=== PATIENT | male | born 1985 | race Caucasian/White ===

== ENCOUNTER 2023-01-20 15:59 | Emergency (ER) | payer OTHER, SELFPAY ==
[2023-01-20] VITALS (8 sets, daily range): BP systolic 148; BP diastolic 98; PULSE 96–110; RESP 15–23; TEMP 37; O2SAT 97–98; BMI 23.4
--- NOTE | 2023-01-20 16:22 | CT_ITS ---
[address] [address] Patient Name: EDUARDO QUILES MRN: [id number] date: 1985 Sex: M Assigned Patient Location: ER Current Patient Location: ER Accession/Order Number: [id number] Exam Date: 01/20/2023 16:35 Report Date: 01/20/2023 17:07 At the request of: JOCELINE CAMARENA Procedure: CT angio chest CTA CHEST. INDICATION: Pulmonary embolism. COMPARISON: None available. TECHNIQUE: CT pulmonary angiogram. Initially, limited axial non-contrast images through chest obtained to establish proper bolus timing. Subsequently, contrast enhanced axial CT images were obtained through the chest. Axial, sagittal and coronal reformatted maximum intensity projection images and / or 3D volume rendered images created. FINDINGS: PULMONARY ARTERIES: No intraluminal filling defects within the central or segmental pulmonary arteries to suggest pulmonary embolism.. Normal RV:LV ratio (<1). AORTA: The thoracic aorta diameter is normal without aneurysm or dissection. LUNGS: There is mild centrilobular and paraseptal emphysema in the apices. No airspace disease. No pleural effusions.. No pneumothorax. LYMPH NODES: No enlarged mediastinal lymph nodes by CT criteria. HEART: Heart size is normal. No pericardial effusion. UPPER ABDOMEN: Hepatic steatosis. MUSCULOSKELETAL: No acute osseous abnormality. CT/CT angio chest IMPRESSION: 1. No pulmonary thromboembolic disease. No aortic aneurysm or dissection. 2. No acute airspace disease. Electronically authenticated by: KIM SMITH Date: 01/20/2023 17:07
--- NOTE | 2023-01-20 16:23 | ED.CHESTPAI1 ---
HPI - Chest Pain General Chief Complaint: Chest Pain Stated Complaint: Flank Pain Time Seen by Provider: 01/20/23 16:17 Mode of arrival: walk-in Limitations: no limitations History of Present Illness HPI narrative: patient is a 37-year-old male who presents to the emergency department for right-sided chest discomfort for the last two days. He states he smokes half a pack of cigarettes daily and has chronic coughing. He states he has pain in the right chest wall that is worse with deep breathing, coughing. He states it is not tender to touch. He has a history of previous pneumothorax on the right side requiring surgery. No medications taken prior to arrival. He denies any objective fevers, vomiting. He has no significant sputum production or hemoptysis. Related Data Home Medications Medication Instructions Recorded Confirmed aripiprazole 5 mg tablet 5 mg PO DAILY 01/20/23 01/20/23 buprenorphine 2 mg-naloxone 0.5 mg 2 tab sublingual BID 01/20/23 01/20/23 sublingual tablet Previous Rx's Medication Instructions Recorded prednisone 20 mg tablet 60 mg PO DAILY 3 days #9 tabs 01/20/23 Allergies Allergy/AdvReac Type Severity Reaction Status Date / Time No Known Drug Allergies Allergy Verified 01/20/23 16:14 Review of Systems ROS Constitutional Denies: fever or chills Ears, nose, mouth, and throat Denies: throat pain Cardiovascular Reports: chest pain Respiratory Reports: cough; Denies: shortness of breath Gastrointestinal Denies: nausea or vomiting Genitourinary Denies: painful urination Musculoskeletal Reports: back pain; Denies: neck pain Integumentary/Breast Denies: rash Neurological Denies: headache Hematologic/Lymphatic Denies: easy bruising PFSH PFSH Social History Smoking status: Heavy tobacco smoker Exam Narrative Exam Narrative: Gen.: Awake, alert, in no distress Head: Normocephalic, atraumatic ENT: Moist mucous membranes Respiratory: No respiratory distress, lungs clear bilaterally Cardio: Regular rate and rhythm Gastrointestinal: Abdomen is soft, nondistended and nontender to palpation Extremities: Moves extremities equally, no injuries noted Psych: Normal mood and affect Neuro: No focal neuro deficit Skin: Warm, dry, intact; no rashes noted of the flank Constitutional Vital Signs, click to edit/add: Last Vital Signs Temp 98.6 F 01/20/23 16:10 Pulse 108 H 01/20/23 16:10 Resp 20 01/20/23 16:10 BP 148/98 H 01/20/23 16:10 Pulse Ox 98 01/20/23 16:21 O2 Del Method Room Air 01/20/23 16:21 Course Vital Signs Vital signs: Vital Signs Temperature 98.6 F 01/20/23 16:10 Pulse Rate 108 H 01/20/23 16:10 Respiratory Rate 20 01/20/23 16:10 Blood Pressure 148/98 H 01/20/23 16:10 Pulse Oximetry 97 01/20/23 16:10 Oxygen Delivery Method Room Air 01/20/23 16:10 Temperature 98.6 F 01/20/23 16:10 Pulse Rate 108 H 01/20/23 16:10 Respiratory Rate 20 01/20/23 16:10 Blood Pressure 148/98 H 01/20/23 16:10 Pulse Oximetry 98 01/20/23 16:21 Oxygen Delivery Method Room Air 01/20/23 16:21 MDM - Chest Pain MDM Narrative Medical decision making narrative: based on the patient's history of pneumothorax, I suspect a d-dimer will be elevated so the patient had a CT angio of the chest as he is tachycardic with pleuritic pain in the right chest wall. Lab studies are stable although LFTs are elevated, consistent with hepatic steatosis. This was seen on CT scan. The CT was otherwise unremarkable. patient will be discharged with a course of steroids, he declined Toradol in the Emergency Room. Follow-up with PCP for further evaluation and treatment and return to the emergency department if symptoms change or worsen. Medical Records Data Attestation: I reviewed the patient's medical records. Lab Data Attestation: I reviewed the patient's lab results. Labs: Lab Results 01/20/23 Range/Units 16:31 WBC 6.3 (4.0-11.0) 10^3/uL RBC 4.74 (4.70-6.10) 10^6/uL Hgb 14.2 (14.0-18.0) g/dL Hct 43.6 (42.0-54.0) % MCV 92.0 (80.0-94.0) fL MCH 30.0 (25.9-34.0) pg MCHC 32.6 (29.9-35.2) g/dL RDW 13.9 (11.0-15.0) % Plt Count 210 (150-450) 10^3/uL MPV 10.2 (9.5-13.5) fL Neut % (Auto) 54.8 (43.0-75.0) % Lymph % (Auto) 29.6 (20.5-60.0) % [place] % (Auto) 10.7 (1.7-12.0) % Eos % (Auto) 3.7 (0.9-7.0) % Baso % (Auto) 1.0 (0.2-2.0) % Neut # (Auto) 3.5 (1.4-6.5) 10^3/uL Lymph # (Auto) 1.9 (1.2-3.8) 10^3/uL [place] # (Auto) 0.7 (0.3-0.8) 10^3/uL Eos # (Auto) 0.2 (0.0-0.7) 10^3/uL Baso # (Auto) 0.1 (0.0-0.1) 10^3/uL Abs Immat Gran (auto) 0.01 (0.00-0.03) 10^3/uL Imm/Tot Granulo (auto) 0.2 (0.0-0.5) % Sodium 142 (136-145) mmol/L Potassium 3.5 (3.5-5.1) mmol/L Chloride 104 (98-107) mmol/L Carbon Dioxide 29.2 (21.0-32.0) mmol/L Anion Gap 12.3 BUN 11.0 (7.0-18.0) mg/dL Creatinine 0.94 (0.70-1.30) mg/dL Est GFR ( Amer) >60 (>=60) Est GFR (Non-Af Amer) >60 (>=60) BUN/Creatinine Ratio 11.7 Glucose 93 (74-106) mg/dL Calcium 9.3 (8.5-10.1) mg/dL Total Bilirubin 0.4 (0.2-1.0) mg/dL AST 236 H (15-37) U/L ALT 160 H (16-63) U/L Alkaline Phosphatase 115 (46-116) U/L Total Protein 9.0 H (6.4-8.2) g/dL Albumin 3.5 (3.4-5.0) g/dL Globulin 5.5 g/dL Albumin/Globulin Ratio 0.[address] scan - chest: Attestation: I have reviewed the pertinent imaging results. Radiologist's impression: Procedure: CT angio chest CTA CHEST. INDICATION: Pulmonary embolism. COMPARISON: None available. TECHNIQUE: CT pulmonary angiogram. Initially, limited axial non-contrast images through chest obtained to establish proper bolus timing. Subsequently, contrast enhanced axial CT images were obtained through the chest. Axial, sagittal and coronal reformatted maximum intensity projection images and / or 3D volume rendered images created. FINDINGS: PULMONARY ARTERIES: No intraluminal filling defects within the central or segmental pulmonary arteries to suggest pulmonary embolism.. Normal RV:LV ratio (<1). AORTA: The thoracic aorta diameter is normal without aneurysm or dissection. LUNGS: There is mild centrilobular and paraseptal emphysema in the apices. No airspace disease. No pleural effusions.. No pneumothorax. LYMPH NODES: No enlarged mediastinal lymph nodes by CT criteria. HEART: Heart size is normal. No pericardial effusion. UPPER ABDOMEN: Hepatic steatosis. MUSCULOSKELETAL: No acute osseous abnormality. IMPRESSION: 1. No pulmonary thromboembolic disease. No aortic aneurysm or dissection. 2. No acute airspace disease. Electronically authenticated by: KIM SMITH Date: 01/20/2023 17:07 ECG Data Attestation: I personally reviewed and interpreted this ECG as follows: (sinus tachycardia at a rate of 102, no acute ST elevation or ectopy. EKG reviewed by attending physician) ECG interpretation date: 01/20/23 ECG interpretation time: 16:27 Heart Score History: Slightly/Non-Suspicious ECG: Normal Age: <45 years Risk Factors: 1 or 2 Risk Factors Discharge Plan Discharge Chief Complaint: Chest Pain Clinical Impression: Atypical chest pain, Pleurisy Patient Disposition: Home, Self-Care Time of Disposition Decision: 17:23 Condition: Good Prescriptions / Home Meds: New prednisone 20 mg tablet 60 mg PO DAILY 3 Days Qty: 9 0RF No Action buprenorphine-naloxone 2-0.5 mg tablet, sublingual 2 tab SUBLINGUAL BID aripiprazole 5 mg tablet 5 mg PO DAILY Instructions: Pleurisy (ED), Chest Wall Pain (ED) Stand Alone Forms: Portal Instructions Referrals: Physician,Non-Staff, MD [Primary Care Provider] - 1 week
--- NOTE | 2023-01-20 16:25 | ECG_ITS ---
[facility] Test Date: 2023-01-20 Pat Name: EDUARDO QUILES Department: Room: - Gender: Male [employer] Preserves: : 1985 Requested By: Order Number: [id number] Reading MD: MARTELL CARLOS Measurements Intervals [place] Rate: 102 P: 64 MI: 148 QRS: 69 QRSD: 88 T: 38 QT: 306 QTc: 365 Interpretive Statements 1120 Sinus tachycardia 9140 abnormal rhythm ECG No previous ECG available for comparison Electronically Signed On 01-21-2023 7:09:43 EDT by MARTELL CARLOS
[2023-01-20 16:41] LABS: Basophils Absolute Auto 0.1 10^3/uL (0.0-0.1); Eosinophils Absolute Auto 0.2 10^3/uL (0.0-0.7); Eosinophils Percent Auto 3.7 % (0.9-7.0); Hematocrit 43.6 % (42.0-54.0); Hemoglobin 14.2 g/dL (14.0-18.0); Immature Granulocytes Abs Auto 0.01 10^3/uL (0.00-0.03); Immature Granulocytes Pct Auto 0.2 % (0.0-0.5); Lymphocytes Absolute Auto 1.9 10^3/uL (1.2-3.8); Lymphocytes Percent Auto 29.6 % (20.5-60.0); Mean Corpuscular HGB Conc 32.6 g/dL (29.9-35.2); Mean Platelet Volume 10.2 fL (9.5-13.5); Monocytes Absolute Auto 0.7 10^3/uL (0.3-0.8); Monocytes Percent Auto 10.7 % (1.7-12.0); Neutrophils Absolute Auto 3.5 10^3/uL (1.4-6.5); Neutrophils Percent Auto 54.8 % (43.0-75.0); Platelet Count 210 10^3/uL (150-450); Red Blood Count 4.74 10^6/uL (4.70-6.10); Red Cell Distribution Width 13.9 % (11.0-15.0); White Blood Count 6.3 10^3/uL (4.0-11.0)
[2023-01-20 16:51] LABS: Alanine Aminotransferase 160 U/L (16-63); Albumin Globulin Ratio 0.6; Albumin Level 3.5 g/dL (3.4-5.0); Alkaline Phosphatase 115 U/L (46-116); Anion Gap 12.3; Aspartate Amino Transferase 236 U/L (15-37); BUN Creatinine Ratio 11.7; Bilirubin Total 0.4 mg/dL (0.2-1.0); Calcium 9.3 mg/dL (8.5-10.1); Carbon Dioxide 29.2 mmol/L (21.0-32.0); Chloride 104 mmol/L (98-107); Estimated GFR (African America >60 (>=60); Estimated GFR (Non-African Ame >60 (>=60); Globulin 5.5 g/dL; Glucose 93 mg/dL (74-106); Potassium 3.5 mmol/L (3.5-5.1); Sodium 142 mmol/L (136-145)
[2023-01-20] MEDS: PREDNISONE 20 MG TABLET 60 MG PO (17:31)
== END 2023-01-20 17:37 | disposition home or self-care (01) ==
PROVIDERS: Physician Assistant; Emergency Provider Emergency Medicine Emergency Medical Services
DX: R07.89 Other chest pain (principal); R09.1 Pleurisy; F17.210 Nicotine dependence, cigarettes, uncomplicated; Z79.899 Other long term (current) drug therapy
CPT/HCPCS: 36415; 71275; 80053; 85025; 93005; 99285; Q9967

== ENCOUNTER 2023-05-27 16:13 | Emergency (ER) | payer OTHER, SELFPAY ==
[2023-05-27 16:17] VITALS: BP 160/100; PULSE 118; RESP 18; TEMP 37; O2SAT 98; BMI 23.5
--- NOTE | 2023-05-27 16:33 | ED.EYEPROB1 ---
HPI - Eye Problem General Chief complaint: Eye Problems Stated complaint: Vision Disturbance Time Seen by Provider: 05/27/23 16:18 Source: patient Mode of arrival: walk-in History of Present Illness HPI Narrative: 37-year-old male presents for redness and drainage from both eyes that has had for multiple days. His eyes are matted shut in the morning. He went to an urgent care center and they put him on some antihistamines and told him he has allergies. No trauma or foreign body. His symptoms are continuous. Related Data Home Medications Medication Instructions Recorded Confirmed buprenorphine 2 mg-naloxone 0.5 mg 2 tab sublingual BID 01/20/23 05/27/23 sublingual tablet acamprosate 333 mg tablet,delayed 666 mg PO TID 05/27/23 05/27/23 release olanzapine 5 mg tablet 5 mg PO QPM 05/27/23 05/27/23 sertraline 50 mg tablet 50 mg PO DAILY 05/27/23 05/27/23 Previous Rx's Medication Instructions Recorded sulfacetamide sodium 10 % eye drops 2 drp ophthalmic (eye) Q4H #15 mL 05/27/23 Allergies Allergy/AdvReac Type Severity Reaction Status Date / Time No Known Drug Allergies Allergy Verified 01/20/23 16:14 Review of Systems ROS Narrative A ten point review of systems is negative except as noted above. 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 General: The patient appears well and in no apparent distress. Patient is resting comfortably on cart. Skin: Warm, dry, no pallor noted. There is no rash noted. Head: atraumatic Eye: Both conjunctiva are injected with some dried drainage on the lid margins. Ears, Nose, Mouth, and Throat: oral mucosa is moist. Nares patent. Cardiovascular: Regular Rate and Rhythm Respiratory: Patient is in no distress, no accessory muscle use, lungs are clear to auscultation, no wheezing, rales or rhonchi Back: non-tender GI: Soft and nontender Musculoskeletal: The patient has no evidence of calf tenderness, no pitting edema, symmetrical pulses noted bilaterally Neurological: A&O, normal speech Psychiatric: Cooperative Constitutional Vital Signs, click to edit/add: Last Vital Signs Temp 98.6 F 05/27/23 16:17 Pulse 125 H 05/27/23 17:40 Resp 18 05/27/23 17:40 BP 139/105 H 05/27/23 17:40 Pulse Ox 98 05/27/23 17:40 O2 Del Method Room Air 05/27/23 17:40 Course Vital Signs Vital signs: Vital Signs Temperature 98.6 F 05/27/23 16:17 Pulse Rate 118 H 05/27/23 16:17 Respiratory Rate 18 05/27/23 16:17 Blood Pressure 160/100 H 05/27/23 16:17 Pulse Oximetry 98 05/27/23 16:17 Oxygen Delivery Method Room Air 05/27/23 16:17 Temperature 98.6 F 05/27/23 16:17 Pulse Rate 125 H 05/27/23 17:40 Respiratory Rate 18 05/27/23 17:40 Blood Pressure 139/105 H 05/27/23 17:40 Pulse Oximetry 98 05/27/23 17:40 Oxygen Delivery Method Room Air 05/27/23 17:40 MDM - Eye Problem MDM Narrative Medical decision making narrative: My clinical impression is that he has bilateral conjunctivitis. He will be prescribed Bleph-10 eyedrops and the rest of his workup including TSH is negative. Treatment diagnosis and follow-up were discussed with the patient Differential Diagnosis Differential diagnosis: Likely conjunctivitis Lab Data Attestation: I reviewed the patient's lab results. Labs: Lab Results 05/27/23 Range/Units 16:39 WBC 7.5 (4.0-11.0) 10^3/uL RBC 4.95 (4.70-6.10) 10^6/uL Hgb 15.0 (14.0-18.0) g/dL Hct 45.6 (42.0-54.0) % MCV 92.1 (80.0-94.0) fL MCH 30.3 (25.9-34.0) pg MCHC 32.9 (29.9-35.2) g/dL RDW 13.3 (11.0-15.0) % Plt Count 128 L (150-450) 10^3/uL MPV 10.8 (9.5-13.5) fL Neut % (Auto) 71.1 (43.0-75.0) % Lymph % (Auto) 19.3 L (20.5-60.0) % [place] % (Auto) 7.8 (1.7-12.0) % Eos % (Auto) 1.1 (0.9-7.0) % Baso % (Auto) 0.4 (0.2-2.0) % Neut # (Auto) 5.3 (1.4-6.5) 10^3/uL Lymph # (Auto) 1.4 (1.2-3.8) 10^3/uL [place] # (Auto) 0.6 (0.3-0.8) 10^3/uL Eos # (Auto) 0.1 (0.0-0.7) 10^3/uL Baso # (Auto) 0.0 (0.0-0.1) 10^3/uL Abs Immat Gran (auto) 0.02 (0.00-0.03) 10^3/uL Imm/Tot Granulo (auto) 0.3 (0.0-0.5) % Sodium 139 (136-145) mmol/L Potassium 3.6 (3.5-5.1) mmol/L Chloride 105 (98-107) mmol/L Carbon Dioxide 25.3 (21.0-32.0) mmol/L Anion Gap 12.3 BUN 9.0 (7.0-18.0) mg/dL Creatinine 1.03 (0.70-1.30) mg/dL Est GFR ( Amer) >60 (>=60) Est GFR (Non-Af Amer) >60 (>=60) BUN/Creatinine Ratio 8.7 Glucose 92 (74-106) mg/dL Calcium 9.1 (8.5-10.1) mg/dL TSH 1.618 (0.358-3.740) uIU/mL Discharge Plan Discharge Chief Complaint: Eye Problems Clinical Impression: Acute conjunctivitis, bilateral Patient Disposition: Home, Self-Care Time of Disposition Decision: 17:42 Condition: Good Mode of Transportation: Private Vehicle Prescriptions / Home Meds: New sulfacetamide sodium 10 % drops 2 drp ophthalmic (eye) Q4H Qty: 15 0RF No Action buprenorphine-naloxone 2-0.5 mg tablet, sublingual 2 tab SUBLINGUAL BID olanzapine 5 mg tablet 5 mg PO QPM sertraline 50 mg tablet 50 mg PO DAILY acamprosate 333 mg tablet,delayed release (DR/EC) 666 mg PO TID Instructions: Conjunctivitis (ED) Stand Alone Forms: Portal Instructions Referrals: Physician,Non-Staff, MD [Primary Care Provider] - 1 week
[2023-05-27 16:53] LABS: Basophils Percent Auto 0.4 % (0.2-2.0); Eosinophils Absolute Auto 0.1 10^3/uL (0.0-0.7); Eosinophils Percent Auto 1.1 % (0.9-7.0); Hematocrit 45.6 % (42.0-54.0); Immature Granulocytes Abs Auto 0.02 10^3/uL (0.00-0.03); Immature Granulocytes Pct Auto 0.3 % (0.0-0.5); Lymphocytes Absolute Auto 1.4 10^3/uL (1.2-3.8); Lymphocytes Percent Auto 19.3 % (20.5-60.0); Mean Corpuscular HGB Conc 32.9 g/dL (29.9-35.2); Mean Corpuscular Hemoglobin 30.3 pg (25.9-34.0); Mean Corpuscular Volume 92.1 fL (80.0-94.0); Mean Platelet Volume 10.8 fL (9.5-13.5); Monocytes Absolute Auto 0.6 10^3/uL (0.3-0.8); Monocytes Percent Auto 7.8 % (1.7-12.0); Neutrophils Absolute Auto 5.3 10^3/uL (1.4-6.5); Neutrophils Percent Auto 71.1 % (43.0-75.0); Platelet Count 128 10^3/uL (150-450); Red Blood Count 4.95 10^6/uL (4.70-6.10); Red Cell Distribution Width 13.3 % (11.0-15.0); White Blood Count 7.5 10^3/uL (4.0-11.0)
[2023-05-27 16:57] LABS: Anion Gap 12.3; BUN Creatinine Ratio 8.7; Calcium 9.1 mg/dL (8.5-10.1); Carbon Dioxide 25.3 mmol/L (21.0-32.0); Chloride 105 mmol/L (98-107); Estimated GFR (African America >60 (>=60); Estimated GFR (Non-African Ame >60 (>=60); Glucose 92 mg/dL (74-106); Potassium 3.6 mmol/L (3.5-5.1); Sodium 139 mmol/L (136-145)
[2023-05-27 17:38] LABS: Thyroid Stimulating Hormone 1.618 uIU/mL (0.358-3.740)
[2023-05-27 17:40] VITALS: BP 139/105; PULSE 125; RESP 18; O2SAT 98
[2023-05-27 17:44] VITALS: BP 139/105; PULSE 124; RESP 18; O2SAT 98
== END 2023-05-27 17:53 | disposition home or self-care (01) ==
PROVIDERS: Emergency Provider Emergency Medicine
DX: H10.33 Unspecified acute conjunctivitis, bilateral (principal); E05.90 Thyrotoxicosis, unspecified without thyrotoxic crisis or storm; Q75.1 Craniofacial dysostosis; F17.210 Nicotine dependence, cigarettes, uncomplicated; Z79.899 Other long term (current) drug therapy
CPT/HCPCS: 36415; 80048; 84443; 85025; 99283

== ENCOUNTER 2023-05-29 13:35 | Emergency (ER) | payer OTHER, SELFPAY ==
[2023-05-29 13:46] VITALS: BP 152/102; PULSE 108; RESP 16; TEMP 37.4; BMI 24.5
[2023-05-29] MEDS: TETRACAINE HCL 0.5% OP SOL 80 DROP/4 ML BOTTLE OP (14:26)
[2023-05-29] MEDS: EYE RELIEF EYE WASH 118 ML/BOTTLE BOTTLE OP (14:27)
[2023-05-29] MEDS: FLUORESCEIN SODIUM 1 MG STRIP OP (14:27)
[2023-05-29] MEDS: KETOROLAC TROMETHAMINE 0.5% OP SOL 100 DROP/5 ML BOTTLE OP (14:27)
--- NOTE | 2023-05-29 14:36 | ED_ITS ---
HPI - Eye Problem General Chief complaint: Eye Problems Stated complaint: PINK EYE RETURN PATIENT Time Seen by Provider: 05/29/23 13:53 Source: patient Mode of arrival: walk-in History of Present Illness HPI Narrative: 37-year-old male presents to the emergency room with chief complaint of left eye pain. Patient was seen here on 214 and diagnosed with bilateral conjunctivitis and put on Bleph-10. He states his right eye has improved but left eye continues to drain and he has pain. No significant swelling or eyelid edema noted. He does have some dry crusting and drainage noted to the medial canthus. Patient has chronic exophthalmos. He states he has been like that all his life. He does not have a eye doctor. Related Data Home Medications Medication Instructions Recorded Confirmed buprenorphine 2 mg-naloxone 0.5 mg 2 tab sublingual BID 01/20/23 05/27/23 sublingual tablet acamprosate 333 mg tablet,delayed 666 mg PO TID 05/27/23 05/27/23 release olanzapine 5 mg tablet 5 mg PO QPM 05/27/23 05/27/23 sertraline 50 mg tablet 50 mg PO DAILY 05/27/23 05/27/23 Previous Rx's Medication Instructions Recorded sulfacetamide sodium 10 % eye drops 2 drp ophthalmic (eye) Q4H #15 mL 05/27/23 tobramycin-dexamethasone 0.3 %-0.1 1 applic ophthalmic (eye) TID #3.5 05/29/23 % eye ointment (TobraDex) grams Allergies Allergy/AdvReac Type Severity Reaction Status Date / Time No Known Drug Allergies Allergy Verified 01/20/23 16:14 Review of Systems ROS Narrative All Systems are negative except as noted/marked. 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 General: The patient appears well and in no apparent distress. Patient is resting comfortably on cart. Skin: Warm, dry, no pallor noted. There is no rash noted. Head: Normocephalic, atraumatic Eye: Chronic exophthalmos, left conjunctive injected with purulent drainage, no acute swelling,Normal conjunctiva, no drainage, EOMI. PERRL Ears, Nose, Mouth, and Throat: oral mucosa is moist. Nares patent. Mouth without vesicles. Ear canals patent. Tm's without Erythema Cardiovascular: Regular Rate and Rhythm Respiratory: Patient is in no distress, no accessory muscle use, lungs are clear to auscultation, no wheezing, rales or rhonchi Neurological: A&O x4, normal speech Psychiatric: Cooperative Constitutional Vital Signs, click to edit/add: Last Vital Signs Temp 99.3 F 05/29/23 13:46 Pulse 108 H 05/29/23 13:46 Resp 05/29/23 13:46 BP 152/102 H 05/29/23 13:46 Course Vital Signs Vital signs: Vital Signs Temperature 99.3 F 05/29/23 13:46 Pulse Rate 108 H 05/29/23 13:46 Respiratory Rate 16 05/29/23 13:46 Blood Pressure 152/102 H 05/29/23 13:46 Temperature 99.3 F 05/29/23 13:46 Pulse Rate 108 H 05/29/23 13:46 Respiratory Rate 16 05/29/23 13:46 Blood Pressure 152/102 H 05/29/23 13:46 MDM - Eye Problem MDM Narrative Medical decision making narrative: Chief complaint of history of conjunctivitis. He had been on Bleph-10 drops right eyes improved, left eye continues to have burning and irritation. Left eye was examined under thurman lamp,. No significant finding is noted. No acute foreign body. Patient will be referred to fulfillment specialist. He has a primary care physician appointment scheduled for this week.Bleph-10 he will be placed on TobraDex and follow-up. Patient agrees with plan of care. He will also be discharged home with a prescription for ketorolac drops. Patient also told to flush eye with [employer] baby shampoo. Patient's pain is relieved at this time. Differential Diagnosis Differential diagnosis: Likely corneal abrasion, conjunctivitis and acute iritis Medical Records Attestation: I reviewed the patient's medical records. Discharge Plan Discharge Chief Complaint: Eye Problems Clinical Impression: Bacterial conjunctivitis Patient Disposition: Home, Self-Care Time of Disposition Decision: 14:45 Condition: Good Prescriptions / Home Meds: New TobraDex 0.3-0.1 % ointment 1 applic ophthalmic (eye) TID Qty: 3.5 0RF Rx Instructions: space evenly during waking hours No Action buprenorphine-naloxone 2-0.5 mg tablet, sublingual 2 tab SUBLINGUAL BID olanzapine 5 mg tablet 5 mg PO QPM sertraline 50 mg tablet 50 mg PO DAILY acamprosate 333 mg tablet,delayed release (DR/EC) 666 mg PO TID sulfacetamide sodium 10 % drops 2 drp ophthalmic (eye) Q4H Qty: 15 0RF Instructions: Conjunctivitis (ED) Stand Alone Forms: Portal Instructions Referrals: JOSE MIGUEL PORTER [Physician] - 1 week Physician,Non-Staff, MD [Primary Care Provider] - 1 week Discharge Date/Time: 05/29/23 14:56 Procedures ED Procedure Instructions Procedures Procedures: left eye was anesthetized with tetracaine and stained with fluorescein stain. No uptake is noted no significant scratch identified no abscess.
== END 2023-05-29 14:56 | disposition home or self-care (01) ==
PROVIDERS: Emergency Provider Emergency Medicine
DX: H10.9 Unspecified conjunctivitis (principal); Z79.899 Other long term (current) drug therapy; E05.90 Thyrotoxicosis, unspecified without thyrotoxic crisis or storm; Q75.1 Craniofacial dysostosis
CPT/HCPCS: 99283